=== PATIENT | male | born 1985 | race Caucasian/White ===

== ENCOUNTER 2020-09-08 11:15 | Emergency (ER) | payer OTHER ==
[2020-09-08 12:58] LABS: HEMOGLOBIN 12.3 gm/dl (14.0-17.5); RED BLOOD COUNT 4.09 M/UL (4.20-5.50); WHITE BLOOD COUNT 6.6 K/UL (4.5-11.0)
[2020-09-08 13:18] LABS: BUN/CREATININE RATIO 20 (0-10)
== END 2020-09-08 20:55 | disposition home or self-care (01) ==
LOC: ER1 11:15
PROVIDERS: Physician Assistant
DX: L02.212 Cutaneous abscess of back [any part, except buttock and flank] (principal); F17.210 Nicotine dependence, cigarettes, uncomplicated; Z79.899 Other long term (current) drug therapy; Z20.822 Contact with and (suspected) exposure to COVID-19
CPT/HCPCS: 72132; 72158; 80053; 83605; 85025; 87040; 96374; 96375; 99284; A9577; J0696; J1885; J2060; J3370; J7030; J7050; Q9967; U0002